=== PATIENT | female | born 1950 | race Caucasian/White ===

== ENCOUNTER 2022-05-07 20:04 | Inpatient (IN) | payer MEDICARE, BC ==
[~2022-05-07] VITALS: Ht 160 cm; Wt 44.0 kg
--- NOTE | 2022-05-07 20:55 | NUR ---
[facility] FROM [facility] C/O TESTING COVID YESTERDAY, LOW H/H. PATIENT IS AAOX4. NON AMBULATORY. PATIENT CAME WITH COLOSTOMY BAG. PATIENT HAS MIDLINE ON RIGHT UPPER ARM G22. ATTACHED TO MONITOR. VITALS CHECKED.
[2022-05-07] MEDS ORDERED: FERR325T23 PO (20:58)
[2022-05-07] MEDS ORDERED: ENOX60DI SQ (20:58)
[2022-05-07] MEDS ORDERED: VITA400C74 PO (20:58)
[2022-05-07] MEDS ORDERED: METO25TA4 PO (20:58)
[2022-05-07] MEDS ORDERED: PANT40TA49 PO (20:58)
[2022-05-07] MEDS ORDERED: FURO20TA4 PO (20:58)
[2022-05-07] MEDS ORDERED: ATOR20TA PO (20:58)
[2022-05-07] MEDS ORDERED: CYAN-51 PO (20:58)
[2022-05-07] MEDS ORDERED: HYDR200T4 PO (20:58)
[2022-05-07] MEDS ORDERED: FOLI0.4T6 PO (20:58)
[2022-05-07] MEDS ORDERED: ACET-2605 PO (20:58)
[2022-05-07] MEDS ORDERED: CHOL200013 PO (20:58)
[2022-05-07] MEDS ORDERED: ACET325C7 PO (20:58)
[2022-05-07] MEDS ORDERED: ASPI-1420 PO (20:58)
--- NOTE | 2022-05-07 21:12 | NUR ---
COVID SPECIMEN SENT TO LAB
--- NOTE | 2022-05-07 21:14 | NUR ---
IV CANNULA G20 INSERTED ON RIGHT HAND.
[2022-05-07 21:49] LABS: BASOPHILS % (AUTO) 0.1 % (0.0-2.0); EOSINOPHILS % (AUTO) 0.9 % (0.0-6.0); HEMATOCRIT 27 % (33-45); HEMOGLOBIN 8.6 g/dL (11.5-14.8); LYMPHOCYTES # (AUTO) 1.2 K/uL (0.8-4.8); MEAN CORPUSCULAR HGB CONC 32 g/dl (31.0-36.0); MEAN CORPUSCULAR VOLUME 84 fL (82-100); MONOCYTES # (AUTO) 0.7 K/uL (0.1-1.30); MONOCYTES % (AUTO) 10.1 % (2.0-12.0); NEUTROPHILS # (AUTO) 4.7 K/uL (1.8-8.9); NEUTROPHILS % (AUTO) 70.9 % (43.0-81.0); PLATELET COUNT (AUTO) 337 K/uL (150-450); WHITE BLOOD COUNT (AUTO) 6.6 K/uL (4.3-11.0)
--- NOTE | 2022-05-07 22:04 | NUR ---
SEEN BY MICHELLE ESQUEDA
[2022-05-07 22:09] LABS: CALCIUM, SERUM 9.3 mg/dL (8.5-10.1); CREATININE 0.7 mg/dL (0.6-1.3); POTASSIUM 3.5 mmol/L (3.5-5.1)
--- NOTE | 2022-05-07 22:21 | NUR ---
XRAY DONE AT BEDSIDE
[2022-05-07 22:26] LABS: ALBUMIN 1.7 g/dL (3.4-5.0); BILIRUBIN,TOTAL 0.2 mg/dL (0.2-1.0); TOTAL PROTEIN, SERUM 5.4 g/dL (6.4-8.2)
[2022-05-07] MEDS ORDERED: ACETAMINOPHEN ES 500 MG TABLET PO PRN (22:30)
[2022-05-07] MEDS ORDERED: Medication Not On Formulary EA (Acetaminophen (Tylenol) 650 MG) PO PRN (22:30)
[2022-05-07] MEDS ORDERED: ALBUTEROL SULFATE 8 GM HFA.AER.AD IH PRN (22:30)
--- NOTE | 2022-05-07 22:49 | NUR ---
BED 109
--- NOTE | 2022-05-07 23:53 | NUR ---
REPORT GIVEN BRENNON CACERES
--- NOTE | 2022-05-08 00:38 | NUR ---
PT TRANSPORTED VIA [place] [facility]
[2022-05-08 00:40] VITALS: BP_SYST 102; BP_SYST 112; BP_DIAS 75; BP_DIAS 78
--- NOTE | 2022-05-08 00:40 | NUR ---
MS RN OPENING NOTES A 72 Y/O FEMALE A/OX 3 CAME TOTALLY DEPENDENT TO [facility] NOTED WITH COLOSTOMY DRAINED LIKE 250CC GREENISH LIQUID , [facility] ,ADMITTED DX IS COVID 19 , PTS ON DROPLET ISOLATION PRECAUTIONARY MEASURES OBSERVED AT ALL TIME ,WITH MIDLINE ON RIGHT UPPER ARM , INTACT AND PATENT , R HAND g 2O INTACT AND PATENT , ADMISSION ORDER CARRIED OUT , BODY CHECK DONE NOTED WITH MULTIPLE DISCOLORATION ON UPPER EXTREMITIES, V/S STABLE AFEBRILE TURNED AND REPOSITION CALL LIGHT WITHIN REACH ALL ORDER CARRIED OUT . WILL CONTINUE TO MONITOR PTS.
[2022-05-08 04:00] VITALS: BP 115/75
[2022-05-08 05:58] LABS: BASOPHILS % (AUTO) 0.2 % (0.0-2.0); EOSINOPHILS % (AUTO) 1.2 % (0.0-6.0); HEMATOCRIT 28 % (33-45); HEMOGLOBIN 8.9 g/dL (11.5-14.8); LYMPHOCYTES # (AUTO) 1.1 K/uL (0.8-4.8); LYMPHOCYTES % (AUTO) 15.8 % (20.0-44.0); MEAN CORPUSCULAR HGB CONC 32 g/dl (31.0-36.0); MEAN CORPUSCULAR VOLUME 84 fL (82-100); MONOCYTES # (AUTO) 0.6 K/uL (0.1-1.30); MONOCYTES % (AUTO) 8.3 % (2.0-12.0); NEUTROPHILS # (AUTO) 5.1 K/uL (1.8-8.9); NEUTROPHILS % (AUTO) 74.5 % (43.0-81.0); PLATELET COUNT (AUTO) 371 K/uL (150-450); RED BLOOD CELL COUNT(AUTO) 3.31 MIL/uL (4.0-5.2); WHITE BLOOD COUNT (AUTO) 6.9 K/uL (4.3-11.0)
[2022-05-08] MEDS: PANTOPRAZOLE 40 MG TABLET.DR PO SCH (06:25)
--- NOTE | 2022-05-08 07:30 | NUR ---
MS RN OPENING NOTES: RECEIVED PT IN BED AWAKE. ALERT AND ORIENTED X 3 CLARENCE ABLE TO VERBALIZED NEEDS. NO SOB OR CARDIAC DISTRESS NOTED. ON ROOM AIR AND TOLERATING WELL. NOTED WITH IV ACCESS ON JAYDA AAND R HAND G#20 PATENT, INTACT AND FLUSHING WELL. SAFETY PRECAUTIONS MAINTAINED: BED LOCKED AND IN LOWEST POSITION. SIDE RAILS UP X 2 CALL LIGHT IN EASY REACH FOR HELP. WILL MONITOR PT ACCORDINGLY.
--- NOTE | 2022-05-08 08:00 | NUR ---
WOUND CARE CONSULT: REVIEWED CHART, NURSING DOCUMENTATION AND PHOTOS WHICH INDICATE SACRAL SCARRING WITH INTACT DEEP TISSUE INJURY, RASHES TO BUTTOCKS, PERINEUM, DISCOLORATIONS TO UPPER AND LOWER EXTREMITIES, DRY SCABS TO LEFT ELBOW AND KNEE WELL WOUND/ESCHAR TO LEFT LOWER LEG, ALL PRESENT ON ADMISSION. DPM CONSULT CALLED TO DR TOMAS. RECOMMENDATIONS MADE FOR SKIN PROTECTION. DISCUSSED WITH NURSING STAFF[facility] MD IN AGREEMENT WITH PLAN OF CARE.
[2022-05-08 08:10] LABS: ALBUMIN 1.7 g/dL (3.4-5.0); BILIRUBIN,TOTAL 0.2 mg/dL (0.2-1.0); CALCIUM, SERUM 9.3 mg/dL (8.5-10.1); CREATININE 0.6 mg/dL (0.6-1.3); POTASSIUM 3.5 mmol/L (3.5-5.1); TOTAL PROTEIN, SERUM 5.5 g/dL (6.4-8.2)
[2022-05-08] MEDS ORDERED: Z GUARD REMEDY 4 OZ OINT TP PRN (08:30)
[2022-05-08] MEDS: CYANOCOBALAMIN 500 MCG TABLET PO SCH (09:18)
[2022-05-08] MEDS: FERROUS SULFATE (325 MG) 325 MG/TAB TABLET PO SCH (09:18)
[2022-05-08] MEDS: VITAMIN E 400 UNIT CAPSULE PO SCH (09:18)
[2022-05-08] MEDS: METOPROLOL SUCCINATE 25 MG TAB.SR.24H PO SCH ×2 (09:19→16:39)
[2022-05-08] MEDS: HYDROXYCHLOROQUINE 200 MG TABLET PO SCH ×2 (09:19→16:34)
[2022-05-08] MEDS: CHOLECALCIFEROL 1,000 UNIT TABLET (VIT D3) PO SCH (09:20)
[2022-05-08] MEDS: ASPIRIN EC 81 MG TABLET.DR PO SCH (09:20)
[2022-05-08] MEDS: PROSOURCE / PROSTAT (PYXIS) 30 ML UDC GT SCH ×2 (09:20→17:26)
[2022-05-08] MEDS: ENSURE ENLIVE 237 ML LIQUID (VANILLA) PO SCH ×2 (09:21→17:26)
[2022-05-08] MEDS: FOLIC ACID 1 MG TABLET PO SCH (09:22)
[2022-05-08] MEDS: ENOXAPARIN SODIUM 60 MG/0.6 ML DISP.SYRIN SQ SCH ×2 (09:23→16:37)
[2022-05-08] MEDS: Z GUARD REMEDY 4 OZ OINT TP SCH (10:33)
[2022-05-08] MEDS: CLOTRIMAZOLE 1% 15 GM TUBE TP SCH ×2 (10:33→16:35)
[2022-05-08 12:00] VITALS: BP 105/65
--- NOTE | 2022-05-08 13:00 | NUR ---
RN NOTES: NOTED WITH ON AND OFF DRY COUGH, PT DENIES ANY PAIN.
--- NOTE | 2022-05-08 15:30 | NUR ---
RN NOTES: CHANGED COLOSTOMY NOTED WITH GREENISH LIQUID COLORED STOOL, COLLECTED STOOL PROPERLY LABELLED AND SPOKE TO MECCA FOR LEGAL INVESTIGATOR.
--- NOTE | 2022-05-08 18:53 | NUR ---
MS RN CLOSING NOTES: PT IN BED AWAKE. ALERT AND ORIENTED X 3 ABLE TO VERBALIZED NEEDS. NO SOB OR CARDIAC DISTRESS NOTED. ON ROOM AIR AND TOLERATING WELL. NOTED WITH IV ACCESS ON JAYDA AND R HAND G#20 PATENT, INTACT AND FLUSHING WELL. SAFETY PRECAUTIONS MAINTAINED: BED LOCKED AND IN LOWEST POSITION. SIDE RAILS UP X 2 CALL LIGHT IN EASY REACH FOR HELP. ENDORSED TO [facility] NURSE FOR CONTINUITY OF CARE.
[2022-05-08 19:58] LABS: OCCULT BLOOD STOOL POSITIVE (NEGATIVE)
[2022-05-08 20:00] VITALS: BP 102/72
[2022-05-08] MEDS: ATORVASTATIN 10 MG TABLET PO SCH (22:21)
[2022-05-09 04:00] VITALS: BP 122/70
--- NOTE | 2022-05-09 06:34 | NUR ---
MS RN CLOSING NOTES: PT IN BED AWAKE. ALERT AND ORIENTED X 3 . NO SOB OR CARDIAC DISTRESS NOTED. ON ROOM AIR AND TOLERATING WELL. NOTED WITH IV ACCESS ON JAYDA AND R HAND G#20 PATENT, INTACT AND FLUSHING WELL. ON DROPLET ISOLATION PRECAUTIONARY MEASURE OBSERVED SAFETY PRECAUTIONS MAINTAINED: BED LOCKED AND IN LOWEST POSITION. SIDE RAILS UP X 2 CALL LIGHT IN EASY REACH FOR HELP. ENDORSED TO [facility] SHIFT NURSE FOR CONTINUITY OF CARE.
[2022-05-09] MEDS: PANTOPRAZOLE 40 MG TABLET.DR PO SCH (07:08)
--- NOTE | 2022-05-09 07:37 | NUR ---
MS RN OPENING NOTES: RECEIVED PT IN BED AWAKE. ALERT AND ORIENTED X 3 ABLE TO VERBALIZED NEEDS. NO SOB OR CARDIAC DISTRESS NOTED. ON ROOM AIR AND TOLERATING WELL. NOTED WITH IV ACCESS ON JAYDA AND R HAND G#20 PATENT, INTACT AND FLUSHING WELL. SAFETY PRECAUTIONS MAINTAINED: BED LOCKED AND IN LOWEST POSITION. SIDE RAILS UP X 2 CALL LIGHT WITHIN REACH. WILL MONITOR
[2022-05-09 08:00] VITALS: BP 105/70
[2022-05-09] MEDS: METOPROLOL SUCCINATE 25 MG TAB.SR.24H PO SCH ×2 (09:00→17:21)
[2022-05-09] MEDS: HYDROXYCHLOROQUINE 200 MG TABLET PO SCH ×2 (09:16→17:22)
[2022-05-09] MEDS: PROSOURCE / PROSTAT (PYXIS) 30 ML UDC GT SCH ×2 (09:16→17:00)
[2022-05-09] MEDS: CYANOCOBALAMIN 500 MCG TABLET PO SCH (09:16)
[2022-05-09] MEDS: FERROUS SULFATE (325 MG) 325 MG/TAB TABLET PO SCH (09:17)
[2022-05-09] MEDS: FOLIC ACID 1 MG TABLET PO SCH (09:17)
[2022-05-09] MEDS: ASPIRIN EC 81 MG TABLET.DR PO SCH (09:17)
[2022-05-09] MEDS: CHOLECALCIFEROL 1,000 UNIT TABLET (VIT D3) PO SCH (09:17)
[2022-05-09] MEDS: VITAMIN E 400 UNIT CAPSULE PO SCH (09:17)
[2022-05-09] MEDS: CLOTRIMAZOLE 1% 15 GM TUBE TP SCH ×2 (09:18→17:24)
[2022-05-09] MEDS: ENOXAPARIN SODIUM 60 MG/0.6 ML DISP.SYRIN SQ SCH ×2 (09:18→17:23)
[2022-05-09] MEDS: Z GUARD REMEDY 4 OZ OINT TP SCH (09:18)
[2022-05-09] MEDS: ENSURE ENLIVE 237 ML LIQUID (VANILLA) PO SCH ×2 (09:19→17:20)
[2022-05-09 12:00] LABS: BASOPHILS % (AUTO) 0.3 % (0.0-2.0); EOSINOPHILS % (AUTO) 1.6 % (0.0-6.0); HEMATOCRIT 27 % (33-45); HEMOGLOBIN 8.7 g/dL (11.5-14.8); LYMPHOCYTES # (AUTO) 1.5 K/uL (0.8-4.8); LYMPHOCYTES % (AUTO) 20.3 % (20.0-44.0); MEAN CORPUSCULAR HGB CONC 32 g/dl (31.0-36.0); MEAN CORPUSCULAR VOLUME 82 fL (82-100); MONOCYTES # (AUTO) 0.8 K/uL (0.1-1.30); MONOCYTES % (AUTO) 10.3 % (2.0-12.0); NEUTROPHILS # (AUTO) 5.1 K/uL (1.8-8.9); NEUTROPHILS % (AUTO) 67.5 % (43.0-81.0); PLATELET COUNT (AUTO) 431 K/uL (150-450); RED BLOOD CELL COUNT(AUTO) 3.29 MIL/uL (4.0-5.2); WHITE BLOOD COUNT (AUTO) 7.6 K/uL (4.3-11.0)
--- NOTE | 2022-05-09 14:00 | NUR ---
RN NOTES: PT REMAIN IN BED NT IN ANY DISTRESS, ASKED FOR DIAPER CHANGE AND REPLACE COLOSTOMY BAG DONE.
[2022-05-09 16:00] VITALS: BP 111/70
--- NOTE | 2022-05-09 19:33 | NUR ---
MS RN CLOSING NOTES: PT IN BED AWAKE. ALERT AND ORIENTED X 3-4 . NO SOB OR CARDIAC DISTRESS NOTED. ON ROOM AIR AND TOLERATING WELL. NOTED WITH IV ACCESS ON JAYDA AND R HAND G#20 PATENT, INTACT AND FLUSHING WELL. ON DROPLET ISOLATION PRECAUTIONARY MEASURE OBSERVED SAFETY PRECAUTIONS MAINTAINED: BED LOCKED AND IN LOWEST POSITION. SIDE RAILS UP X 2 CALL LIGHT IN EASY REACH FOR HELP. ENDORSED TO [facility] SHIFT NURSE FOR CONTINUITY OF CARE.
[2022-05-09 20:00] VITALS: BP 110/69
--- NOTE | 2022-05-09 20:00 | NUR ---
RN NOTE RECEIVED PT AWAKE, AOX4. COUGHING NOTED, DENIES ANY SOB, NO DISTRESS NOTED. O2 SAT 100% ON RA. COLOSTOMY BAG INTACT, WITH GREENISH WATERY MIXED SOFT STOOL. DENIES ANY PAIN. ALL SAFETY MEASURES IN PLACE. WILL CONTINUE TO MONITOR.
[2022-05-09] MEDS: ATORVASTATIN 10 MG TABLET PO SCH (22:31)
[2022-05-10 04:00] VITALS: BP 100/70
[2022-05-10] MEDS: PANTOPRAZOLE 40 MG TABLET.DR PO SCH (06:54)
--- NOTE | 2022-05-10 07:20 | NUR ---
RN NOTE RECEIVED PATIENT IN BED,RESTING ALERT ORIENTED X3-4 VERBALLY RESPONSIVE ON ROOM AIR O2;98%,ON ISOLATION FOR COVID POSITIVE,HAS COLOSTOMY BAG,INCONTINENT BLADDER,IV SITE IS ON RIGHT UPPER ARM MIDLINE AND RIGHT HAND INTACT PATENT,BED IN LOW POSTIION AND LOCKED,CALL LIGHT WITHIN REACH,HEAD OF THE BED ELEVATED CONTINUE TO MONITOR.
--- NOTE | 2022-05-10 07:25 | NUR ---
RN NOTE PT ABLE TO MAKE NEEDS KNOWN. NOT IN ANY DISTRESS. TOLERATES ROOM AIR. REMAIN AFEBRILE. COLOSTOMY BAG CHANGED. ENDORSE TO AM SHIFT NURSE FOR GEMINI. .
[2022-05-10 07:35] LABS: BASOPHILS % (AUTO) 0.4 % (0.0-2.0); HEMATOCRIT 30 % (33-45); HEMOGLOBIN 9.3 g/dL (11.5-14.8); LYMPHOCYTES # (AUTO) 1.8 K/uL (0.8-4.8); LYMPHOCYTES % (AUTO) 23.8 % (20.0-44.0); MEAN CORPUSCULAR HGB CONC 31 g/dl (31.0-36.0); MEAN CORPUSCULAR VOLUME 83 fL (82-100); MONOCYTES # (AUTO) 0.8 K/uL (0.1-1.30); MONOCYTES % (AUTO) 10.8 % (2.0-12.0); NEUTROPHILS # (AUTO) 4.9 K/uL (1.8-8.9); PLATELET COUNT (AUTO) 521 K/uL (150-450); RED BLOOD CELL COUNT(AUTO) 3.55 MIL/uL (4.0-5.2); WHITE BLOOD COUNT (AUTO) 7.7 K/uL (4.3-11.0)
[2022-05-10] MEDS: HYDROXYCHLOROQUINE 200 MG TABLET PO SCH ×2 (08:26→17:23)
[2022-05-10] MEDS: FOLIC ACID 1 MG TABLET PO SCH (08:27)
[2022-05-10] MEDS: CHOLECALCIFEROL 1,000 UNIT TABLET (VIT D3) PO SCH (08:27)
[2022-05-10] MEDS: ASPIRIN EC 81 MG TABLET.DR PO SCH (08:27)
[2022-05-10] MEDS: CYANOCOBALAMIN 500 MCG TABLET PO SCH (08:27)
[2022-05-10] MEDS: FERROUS SULFATE (325 MG) 325 MG/TAB TABLET PO SCH (08:27)
[2022-05-10] MEDS: METOPROLOL SUCCINATE 25 MG TAB.SR.24H PO SCH ×2 (08:28→17:24)
[2022-05-10] MEDS: PROSOURCE / PROSTAT (PYXIS) 30 ML UDC GT SCH ×2 (08:30→17:23)
[2022-05-10] MEDS: ENSURE ENLIVE 237 ML LIQUID (VANILLA) PO SCH ×2 (08:30→17:00)
[2022-05-10] MEDS: VITAMIN E 400 UNIT CAPSULE PO SCH (08:33)
[2022-05-10] MEDS: ENOXAPARIN SODIUM 60 MG/0.6 ML DISP.SYRIN SQ SCH ×2 (08:34→17:25)
[2022-05-10] MEDS: Z GUARD REMEDY 4 OZ OINT TP SCH (08:45)
[2022-05-10] MEDS: CLOTRIMAZOLE 1% 15 GM TUBE TP SCH ×2 (08:46→17:17)
[2022-05-10 09:19] LABS: CALCIUM, SERUM 9.4 mg/dL (8.5-10.1); CREATININE 0.7 mg/dL (0.6-1.3); MAGNESIUM 1.6 mg/dL (1.8-2.4); POTASSIUM 4.3 mmol/L (3.5-5.1)
[2022-05-10 09:23] LABS: IRON, SERUM 14 ug/dl (50-175); TOTAL IRON BINDING CAPACITY 189 ug/dl (250-450)
[2022-05-10 12:00] VITALS: BP 102/67
--- NOTE | 2022-05-10 19:14 | NUR ---
RN NOTE PATIENT REMAINS ALERT ORIENTED X3-4 VERBALLY RESPONSIVE ON ROOM AIR NO SOB NOT ACUTE DISTRESS NOTED,ALL DUE MEDS GIVEN MD ORDERED,KEPT CLEAN AND DRY ALL THE TIME,COLOSTOMY BAG CHANGED,AND CLEAN, ELEVATED HEAD OF THE BED ALL THE TIME,ENDORSE NEXT COMING SHIFT FOR CONTINUATION OF CARE
[2022-05-10 20:00] VITALS: BP 112/74
[2022-05-10] MEDS: ATORVASTATIN 10 MG TABLET PO SCH (21:16)
[2022-05-11 04:00] VITALS: BP 101/72
[2022-05-11 06:26] LABS: BASOPHILS % (AUTO) 0.5 % (0.0-2.0); EOSINOPHILS % (AUTO) 1.8 % (0.0-6.0); HEMATOCRIT 29 % (33-45); HEMOGLOBIN 9.4 g/dL (11.5-14.8); LYMPHOCYTES # (AUTO) 1.8 K/uL (0.8-4.8); LYMPHOCYTES % (AUTO) 26.5 % (20.0-44.0); MEAN CORPUSCULAR HGB CONC 32 g/dl (31.0-36.0); MEAN CORPUSCULAR VOLUME 83 fL (82-100); MONOCYTES # (AUTO) 0.7 K/uL (0.1-1.30); NEUTROPHILS # (AUTO) 4.3 K/uL (1.8-8.9); NEUTROPHILS % (AUTO) 61.2 % (43.0-81.0); PLATELET COUNT (AUTO) 559 K/uL (150-450); RED BLOOD CELL COUNT(AUTO) 3.56 MIL/uL (4.0-5.2)
--- NOTE | 2022-05-11 06:49 | NUR ---
RN CLOSING NOTE ON COVID ISOLATION. A/OX4. ROOM AIR. NO SOB. NO C/O PAIN. COLOSTOMY IN RLQ, C/D/I. GREEN THIN LIQUID OUTPUT. PENDING VASC EVAL, AND GI CONS.
--- NOTE | 2022-05-11 07:30 | NUR ---
RECEIVED PATIENT IN BED, ASLEEP BUT EASILY AROUSES TO VOICE AND TACTILE STIMULI. PATIENT IN NO RESPIRATORY DISTRESS NOTED. IV ACCESS ON RIGHT HAND INTACT, AND RIGHT UPPER ARM MIDLINE, PATENT AND FLUSHES WELL. COLOSTOMY BAG INTACT, DRAINING WITH DARK GREENISH LIQUID STOOL. BED LOCKED AND IN LOWEST POSITION. ALL SAFETY MEASURES IMPLEMENTED. ISOLATION PROTOCOL FOLLOWED. CALL LIGHT WITHIN REACH, HOB SLIGHTLY ELEVATED. WILL CONTINUE TO MONITOR PATIENT THROUGHOUT SHIFT.
[2022-05-11 07:33] LABS: CALCIUM, SERUM 9.9 mg/dL (8.5-10.1); CREATININE 0.8 mg/dL (0.6-1.3); MAGNESIUM 1.5 mg/dL (1.8-2.4); PHOSPHORUS 4.2 mg/dL (2.5-4.9); POTASSIUM 4.2 mmol/L (3.5-5.1)
[2022-05-11] MEDS: PANTOPRAZOLE 40 MG TABLET.DR PO SCH (07:43)
[2022-05-11] MEDS: CHOLECALCIFEROL 1,000 UNIT TABLET (VIT D3) PO SCH (08:38)
[2022-05-11] MEDS: PROSOURCE / PROSTAT (PYXIS) 30 ML UDC GT SCH (08:38)
[2022-05-11] MEDS: ASPIRIN EC 81 MG TABLET.DR PO SCH (08:39)
[2022-05-11] MEDS: VITAMIN E 400 UNIT CAPSULE PO SCH (08:39)
[2022-05-11] MEDS: CYANOCOBALAMIN 500 MCG TABLET PO SCH (08:39)
[2022-05-11] MEDS: HYDROXYCHLOROQUINE 200 MG TABLET PO SCH (08:39)
[2022-05-11] MEDS: FOLIC ACID 1 MG TABLET PO SCH (08:39)
[2022-05-11] MEDS: FERROUS SULFATE (325 MG) 325 MG/TAB TABLET PO SCH (08:39)
[2022-05-11] MEDS: METOPROLOL SUCCINATE 25 MG TAB.SR.24H PO SCH (08:40)
[2022-05-11] MEDS: ENOXAPARIN SODIUM 60 MG/0.6 ML DISP.SYRIN SQ SCH (08:41)
[2022-05-11] MEDS: ENSURE ENLIVE 237 ML LIQUID (VANILLA) PO SCH (09:00)
[2022-05-11] MEDS: CLOTRIMAZOLE 1% 15 GM TUBE TP SCH (09:13)
[2022-05-11] MEDS: Z GUARD REMEDY 4 OZ OINT TP SCH (09:14)
[2022-05-11] MEDS ORDERED: APIX5TAB PO (09:44)
[2022-05-11] MEDS ORDERED: MAGNESIUM OXIDE 400 MG TABLET PO ONE (10:00)
[2022-05-11 12:00] VITALS: BP 109/70
--- NOTE | 2022-05-11 12:05 | NUR ---
TRANSPORTATION CAME TO [place] OPERATOR THE PATIENT. CALLED [facility] @ , SPOKE WITH NURSE MAR, RN PLATING TECHNICIAN AND GAVE FULL REPORT FOR THE PATIENT. PATIENT SIGNED BELONGINGS LIST AND MADE AWARE THAT THE TRANSFORATION IS HERE. TOOK OFF PATIENT'S IV LINE ON RIGHT HAND NOTED WITH INTACT HUB BUT PATIENT REFUSED TO HAVE THE NURSE REMOVE HER MIDLINE. CHARGE NURSE PLATING TECHNICIAN INFORMED AND ALSO NURSE MAR INFORMED FROM THE [facility]. ID BAND REMOVED
--- NOTE | 2022-05-11 12:32 | NUR ---
PATIENT LEFT VIA GURNEY ACCOMPANIED BY TWO TRANSPORT SERVICES. PATIENT LEFT IN NO ACUTE DISTRESS.
== END 2022-05-11 12:44 | DRG 177 ==
LOC: ER 20:10 → MEDSG1 23:56
PROVIDERS: ADMIT Nurse Practitioner Acute Care; ATTEND Nurse Practitioner Acute Care
DX: U07.1 COVID-19 (principal); E43 Unspecified severe protein-calorie malnutrition; Z68.1 Body mass index [BMI] 19.9 or less, adult; K51.90 Ulcerative colitis, unspecified, without complications; R64 Cachexia; E22.2 Syndrome of inappropriate secretion of antidiuretic hormone; R62.7 Adult failure to thrive; L89.159 Pressure ulcer of sacral region, unspecified stage; Z88.1 Allergy status to other antibiotic agents; Z88.0 Allergy status to penicillin; Z88.2 Allergy status to sulfonamides; Z79.01 Long term (current) use of anticoagulants; Z79.82 Long term (current) use of aspirin; Z79.899 Other long term (current) drug therapy; D63.8 Anemia in other chronic diseases classified elsewhere; E78.5 Hyperlipidemia, unspecified; Z93.3 Colostomy status; I10 Essential (primary) hypertension; Z86.718 Personal history of other venous thrombosis and embolism; E88.09 Other disorders of plasma-protein metabolism, not elsewhere classified; E87.8 Other disorders of electrolyte and fluid balance, not elsewhere classified; Z78.9 Other specified health status; R13.10 Dysphagia, unspecified; M32.9 Systemic lupus erythematosus, unspecified; Z90.49 Acquired absence of other specified parts of digestive tract; Z93.2 Ileostomy status; Z74.09 Other reduced mobility
CPT/HCPCS: 36415; 71045-TC; 80048-TC; 80053-TC; 82272-TC; 82728-TC; 83540-TC; 83735-TC; 84100-TC; 85025-TC; 85378-TC; 85730-TC; 86140-TC; 86850-TC; 87081-TC; 93970-TC; 97110-TC; 97530-TC; A6253; A6403; C9803; G0378; J1650